=== PATIENT | female | born 1970 | race Two or more races ===

== ENCOUNTER 2018-11-17 21:53 | Emergency (ER) | payer BC ==
--- NOTE | 2018-11-17 22:13 | PDOC ---
History of Present Illness - General Stated Complaint: R PINKY SWOLLEN Time Seen by Provider: 11/17/18 22:00 History Source: Patient - History of Present Illness Occurred: reports: yesterday Upper Extremity Pain Location: right: 5th finger Past History - Past Medical History Home Medications: Ambulatory Orders Cephalexin [Keflex] 500 mg PO Q6H #28 capsule 11/17/18 Review of Systems - Review of Systems Constitutional: No: Chills, Fever *Physical Exam - Physical Exam General Appearance: Yes: Appropriately Dressed. No: Apparent Distress HEENT: positive: Normal Voice Neck: positive: Supple Respiratory/Chest: negative: Respiratory Distress Integumentary: positive: Dry, Warm, Other (+scab to site of dorsal aspect of PIP J of R 5th digit w/ minimal surrouding erythema and ? warmth, no induration , no pain to digit w/ ROM) Neurologic: positive: Fully Oriented, Alert, Normal Mood/Affect Medical Decision Making - Medical Decision Making 11/17/18 22:09 48 yo F, no sig hx, here w/ pain to R 5th digit since yesterday. Pt states she has had "a wart" to dorsal aspect of PIP joint for 1 month and has been applying compound to site frequently. States site did not come painful until yesterday. No discharge. No fever or chills See exam Localized cellulitis to R 5th digit to site of prior "wart" per pt No e/o abscess No e/o deeper infection at this time -Dc w/ keflex -Wound check as needed in 48 hrs *DC/Admit/Observation/Transfer Diagnosis at time of Disposition: Finger pain, right - Discharge Dispostion Disposition: HOME Condition at time of disposition: Good - Prescriptions Prescriptions: Cephalexin [Keflex] 500 mg PO Q6H #28 capsule - Referrals Referrals: Ivy Ayon MD [Staff Physician] - - Patient Instructions Printed Discharge Instructions: Cellulitis Additional Instructions: Take meds as directed and return for wound check in 48 hrs as needed Please follow up with Dr Ayon of [facility] to evaluate for possible wart - Post Discharge Activity
[2018-11-17 22:28] VITALS: BP 124/80; PULSE 82; TEMP 98.2; BMI 44.0
== END 2018-11-17 22:38 | disposition home or self-care (01) ==
LOC: JER 21:53
DX: L03.011 Cellulitis of right finger (principal)
CPT/HCPCS: 99281-25